=== PATIENT | male | born 1960 | race Caucasian/White ===

== ENCOUNTER 2020-12-30 14:46 | Outpatient (CLI) | payer BC ==
[2020-12-30 16:21] LABS: #Basophils 0.1 10x3/uL (0.0-0.2); #Eosinphils 0.3 10x3/uL (0.0-0.5); #Monocytes 0.8 10x3/uL (0.0-1.1); #Neutrophils 5.4 10x3/uL (1.5-8.4); %Basophils 0.8 % (0.0-2.0); %Eosinophils 3.7 % (0.0-6.0); %Lymphocytes 27.7 % (18.0-47.0); %Monocytes 8.6 % (0.0-10.0); %Neutrophils 58.8 % (40.0-75.0); Hemoglobin 15.6 g/dL (13.5-17.5); Mean Corpuscular HGB CONC 34.8 g/dL (32.0-36.0); Mean Corpuscular Volume 91.8 fl (81.2-95.1); Platelet Count 258 10x3/uL (150-450); RBC Distribution Width 11.9 % (11.5-14.5); Red Blood Cell (RBC) Count 4.88 10x6/uL (4.32-5.72); White Blood Cell (WBC) Count 9.2 10x3/uL (3.5-10.5)
[2020-12-30 16:39] LABS: Anion Gap 14 mmol/L (10-20); BUN (Urea Nitrogen) 17 mg/dL (8.4-25.7); Calc. Creatinine Clearance 0 mL/min (70-130); Carbon Dioxide 26 mmol/L (23-31); Chloride 104 mmol/L (98-107); Glucose 92 mg/dL (80-115); Potassium 4.2 mmol/L (3.5-5.1); Sodium 140 mmol/L (136-145)
[2020-12-31 00:09] LABS: SARS-CoV-2 PCR by NAA Not Detected (NotDetected)
== END 2020-12-30 14:47 | disposition home or self-care (01) ==
LOC: LABBT 14:46
PROVIDERS: ATTEND Orthopaedic Surgery
DX: Z01.818 Encounter for other preprocedural examination (principal); M75.112 Incomplete rotator cuff tear or rupture of left shoulder, not specified as traumatic; M75.22 Bicipital tendinitis, left shoulder; Z20.822 Contact with and (suspected) exposure to COVID-19
CPT/HCPCS: 71046; 80048; 85025; 93005; 93010; U0003; U0005

== ENCOUNTER 2021-01-02 10:14 | Day surgery (SDC) | payer BC ==
[2021-01-01 15:31] VITALS: BMI 27.2
[2021-01-02] MEDS ORDERED: ceFAZolin 2 GM/DEX 5% 100 ML BAG ONE (11:14)
[2021-01-02] MEDS ORDERED: Vancomycin 1.5 GRAM/300 ML BAG 1.5 GM in Premix Bag 1 BAG IVPB SCH (11:15)
[2021-01-02] MEDS ORDERED: Fentanyl 100 MCG/2 ML VIAL ONE ×2 (11:30→12:26)
[2021-01-02] MEDS ORDERED: Midazolam HCl 2 mg/2 ml Vial ONE (11:30)
[2021-01-02] MEDS ORDERED: PROPOFOL 200 MG/20 ML VIAL ONE (12:37)
[2021-01-02] MEDS ORDERED: Dexamethasone 20 MG/5 ML VIAL ONE (12:37)
[2021-01-02] MEDS ORDERED: Lidocaine 1% PF 5 ML VIAL ONE (12:37)
[2021-01-02] MEDS ORDERED: Ropivacaine 0.5% HCl/PF (150 MG/30 ML VIAL) ONE (12:37)
[2021-01-02] MEDS ORDERED: Ondansetron PF 4 MG/2 ML Vial ONE (12:37)
[2021-01-02] MEDS ORDERED: Ropivacaine 2% HCl/PF (20 MG/10 ML VIAL) ONE (12:37)
[2021-01-02] MEDS ORDERED: Rocuronium Bromide 10 MG/ML (10ML VIAL) ONE (12:37)
[2021-01-02] MEDS ORDERED: Ketorolac Tromethamine 30 MG/ML VIAL ONE (12:37)
[2021-01-02] MEDS ORDERED: Lidocaine 1% w/Epinephrine 1:100K 20 ML VIAL ONE (13:00)
[2021-01-02] MEDS ORDERED: SUGAMMADEX SODIUM 200 MG/2 ML VIAL ONE (13:39)
[2021-01-02] MEDS ORDERED: Zolpidem Tartrate 5 MG TAB PO PRN (14:30)
[2021-01-02] MEDS ORDERED: Promethazine HCl 25 MG/ML VIAL IM PRN (14:30)
[2021-01-02] MEDS ORDERED: Ondansetron PF 4 MG/2 ML Vial IVP PRN (14:30)
[2021-01-02] MEDS ORDERED: HYDROcodone/Acetaminophen 5/325 mg Tablet PO PRN ×2 (14:30)
[2021-01-02] MEDS ORDERED: Ropivacaine 0.2% 550 ML 550 ML NERVE BLCK SCH (14:30)
[2021-01-02] MEDS ORDERED: traMADol HCl 50 MG TAB PO PRN ×2 (14:30)
== END 2021-01-02 15:56 | disposition home or self-care (01) ==
LOC: SDC 10:14
PROVIDERS: ATTEND Orthopaedic Surgery
PROC: 0RNK4ZZ Release Left Shoulder Joint, Percutaneous Endoscopic Approach (ICD-10-PCS; principal; 2021-01-02)
PROC: 0RSKXZZ Reposition Left Shoulder Joint, External Approach (ICD-10-PCS; principal; 2021-01-02)
PROC: 3E0T3BZ Introduction of Anesthetic Agent into Peripheral Nerves and Plexi, Percutaneous Approach (ICD-10-PCS; principal; 2021-01-02)
PROC: 0LS40ZZ Reposition Left Upper Arm Tendon, Open Approach (ICD-10-PCS; principal; 2021-01-02)
DX: M75.22 Bicipital tendinitis, left shoulder (principal); S46.012A Strain of muscle(s) and tendon(s) of the rotator cuff of left shoulder, initial encounter; M75.02 Adhesive capsulitis of left shoulder; M25.812 Other specified joint disorders, left shoulder; I10 Essential (primary) hypertension; F17.200 Nicotine dependence, unspecified, uncomplicated; Z79.1 Long term (current) use of non-steroidal anti-inflammatories (NSAID); Z79.899 Other long term (current) drug therapy; X50.0XXA Overexertion from strenuous movement or load, initial encounter
CPT/HCPCS: A4306; C1713; J1100; J1885; J2250; J2405; J2704; J2795; J3010; J3370